=== PATIENT | female | born 1980 | race Caucasian/White ===

== ENCOUNTER 2016-09-07 09:37 | Day surgery (SDC) | payer BC ==
[~2016-09-07] VITALS: Ht 175.3 cm; Wt 58.0 kg
[~2016-09-07 09:37] MED LIST: CHILDREN'S MOT120 M2 PO; FLONASE ALLERG9.9 ML BOTH NARES; PERCOCET 5/31 TABLET PO
[2016-09-07] MEDS ORDERED: PRENATAL TABLE1 EAC3 PO (09:46)
[2016-09-07] MEDS ORDERED: AMOXICILLI400 MG/5 M PO (09:48)
[2016-09-07 10:27] VITALS: BP 110/61
[2016-09-07 10:44] LABS: EOSINOPHIL (%) 0.8 % (0-5); EOSINOPHIL COUNT 0.1 K/uL (0-0.3); HEMATOCRIT 39.2 % (36.0-46.0); IMMATURE GRANULOCYTE (%) 0.2 % (0.0-0.7); IMMATURE GRANULOCYTE COUNT 0.2 K/uL; LYMPHOCYTE COUNT 1.7 K/uL (1.0-2.8); MCH 31.4 PG (29.0-34.0); MCHC 33.7 G/DL (30.0-36.0); MCV 93.1 FL (83-99); MEAN PLAT.VOLUME 10.3 uM^3 (9.5-12.4); MONOCYTE (%) 6.6 % (3-12); MONOCYTE COUNT 0.7 K/uL (0-0.8); NEUTROPHIL (%) 75.6 % (45-76); NEUTROPHIL COUNT 7.9 K/uL (1.8-6.4); PLATELET COUNT 274 K/uL (156-360); RBC DIS.WIDTH-CV 12.6 % (11.8-14.6); RBC DIS.WIDTH-SD 41.8 % (39-53); RED BLOOD COUNT 4.21 M/uL (3.80-5.20); WHITE BLOOD COUNT 10.4 K/uL (4.1-10.2)
[2016-09-07] MEDS ORDERED: HYCET 7.5 MG-3473 ML PO (10:53)
[2016-09-07 12:39] VITALS: BP 104/54
[2016-09-07 12:40] VITALS: BP 104/54
[2016-09-07 13:50] VITALS: BP 100/58
== END 2016-09-07 14:06 | disposition home or self-care (01) ==
LOC: SDC 09:37
PROVIDERS: Obstetrics & Gynecology
PROC: 10D17ZZ Extraction of Products of Conception, Retained, Via Natural or Artificial Opening (ICD-10-PCS; principal; 2016-09-07)
DX: O02.1 Missed abortion (principal); Z3A.01 Less than 8 weeks gestation of pregnancy; O26.21 Pregnancy care for patient with recurrent pregnancy loss, first trimester; J30.9 Allergic rhinitis, unspecified
CPT/HCPCS: 85025; 86850; 86900; 86901; 88305; J1885; J2210; J2250; J3010